=== PATIENT | female | born 1965 | race Caucasian/White ===

== ENCOUNTER → 2017-01-06 | Outpatient (CLI) | payer MEDICAID ==
[~2017-01-06] MED LIST: ALBU8.5H3 INH; ALPR0.254 PO; CALC-151 PO; FISH1CAP PO; GLUC1500 PO; OMEP-110 PO
[2017-01-06 12:36] LABS: HEMOGLOBIN 15.7 g/dL (11.7-16.4)
== END | disposition home or self-care (01) ==
LOC: STAR 11:10
PROVIDERS: ATTEND Student in an Organized Health Care Education/Training Program
DX: Z01.818 Encounter for other preprocedural examination (principal); N84.0 Polyp of corpus uteri
CPT/HCPCS: 36415; 85025; 93005

== ENCOUNTER 2017-01-26 13:29 | Day surgery (SDC) | payer MEDICAID ==
[~2017-01-26] VITALS: Ht 165.1 cm; Wt 45.4 kg
[2017-01-26] MEDS ORDERED: LACTATED RINGERS 1,000 ML IV SCH (13:35)
[2017-01-26 13:55] VITALS: BP 135/82
[2017-01-26 14:03] LABS: HCG UR OBC PASS
[2017-01-26] MEDS ORDERED: SILVER NITRATE STICK TP ONE (14:50)
[2017-01-26] MEDS ORDERED: BUPIVACAINE/PF-EPI 0.25% 1:200K ONE (14:50)
[2017-01-26] MEDS ORDERED: FENTANYL PF 250 MCG/5ML ONE (15:28)
[2017-01-26] MEDS ORDERED: MIDAZOLAM 1 MG/ML, 5ML ONE (15:29)
[2017-01-26] MEDS ORDERED: METOCLOPRAMIDE 5 MG/ML, 2ML ONE (15:40)
[2017-01-26] MEDS ORDERED: DEXAMETHASONE 4 MG/ML, 1ML ONE (15:40)
[2017-01-26] MEDS ORDERED: ONDANSETRON 2MG/ML, 2ML ONE (15:40)
[2017-01-26] MEDS ORDERED: PROPOFOL 10 MG/ML, 20ML ONE (15:40)
[2017-01-26] MEDS ORDERED: KETOROLAC 30 MG/1 ML ONE (15:40)
[2017-01-26] MEDS ORDERED: DOXYCYCLINE 100 MG ONE (15:50)
[2017-01-26] MEDS ORDERED: OXYcodone 5 MG/5 ML ORAL.SOL UDC PO PRN (16:00)
[2017-01-26] MEDS ORDERED: METOPROLOL 1 MG/ML, 5ML IV PRN (16:00)
[2017-01-26] MEDS ORDERED: PROMETHAZINE 25 MG/ML, 1ML IV PRN (16:00)
[2017-01-26] MEDS ORDERED: HYDROmorphone 1 MG/ML, 1ML IV PRN (16:00)
[2017-01-26] MEDS ORDERED: hydrALAzine 20 MG/ML, 1ML IV PRN (16:00)
[2017-01-26] MEDS ORDERED: ACETAMINOPHEN 325 MG TABLET PO PRN (16:00)
[2017-01-26] MEDS ORDERED: ONDANSETRON 2MG/ML, 2ML IVPush PRN (16:00)
[2017-01-26] MEDS ORDERED: FENTANYL PF 100 MCG/2ML IV PRN (16:00)
[2017-01-26] MEDS ORDERED: EPHEDRINE 50 MG/ML, 1ML IVPush PRN (16:00)
[2017-01-26] MEDS ORDERED: MEPERIDINE/PF 25MG/0.5ML IVPush PRN (16:00)
[2017-01-26] MEDS ORDERED: MIDAZOLAM 1 MG/ML, 2ML IV PRN (16:00)
[2017-01-26] MEDS ORDERED: LABETALOL 5MG/ML, 20ML IV PRN (16:00)
== END 2017-01-26 19:00 | disposition home or self-care (01) ==
LOC: OUT 13:29
PROVIDERS: ATTEND Student in an Organized Health Care Education/Training Program
DX: N93.9 Abnormal uterine and vaginal bleeding, unspecified (principal); J45.909 Unspecified asthma, uncomplicated; F41.9 Anxiety disorder, unspecified; F32.9 Major depressive disorder, single episode, unspecified; K21.9 Gastro-esophageal reflux disease without esophagitis; I27.2 Other secondary pulmonary hypertension
CPT/HCPCS: 36415; 58558; 81025; 86850; 86900; 88305; J1100; J1885; J2250; J2405; J2704; J2765; J3010; J7120